=== PATIENT | male | born 1995 | race African-American/Black ===

== ENCOUNTER 2016-05-12 23:29 | Emergency (ER) | payer OTHER ==
[~2016-05-12] VITALS: Ht 170.2 cm; Wt 73.9 kg
[2016-05-12] MEDS ORDERED: MELATONIN1 M1 SL (23:49)
[2016-05-12 23:50] VITALS: BP 110/48
[2016-05-13] MEDS ORDERED: KEFLEX500 MG ORAL (00:20)
--- NOTE | 2016-05-13 00:20 | Emergency Room Report ---
History of Present Illness General Chief Complaint: Puncture Wound Source: Patient Present Illness HPI Is a 20-year-old male who is right-hand dominant. 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 This occurred to his right index finger. No other injury. Pain in that area. No active bleeding. Decreased range of motion. Patient History Past Medical History: none Past Surgical History: none Pertinent Family History: none Social History: Denies: smoking Immunizations: UTD Reviewed Nursing Documentation: PMH: Agreed, PSxH: Agreed Nursing Documentation-PM Past Medical History: No Stated History Review of Systems Eye: Denies: blurred vision, eye pain ENT: Denies: ear pain, nose congestion, throat swelling Respiratory: Denies: cough, shortness of breath Cardiovascular: Denies: chest pain, palpitations Gastrointestinal: Denies: abdominal pain, diarrhea, nausea, vomiting Musculoskeletal: Denies: back pain, joint pain Skin: Denies: rash Neurological: Denies: headache, numbness Endocrine: Denies: increased thirst, increased urine Hematologic/Lymphatic: Denies: easy bruising All Other Systems: negative except mentioned in HPI Physical Exam Vital Signs Date Time Temp Pulse Resp B/P Pulse Ox O2 Delivery O2 Flow Rate FiO2 05/12/16 23:44 98.2 65 18 105/40 96 Room Air vitals normal. Sp02 EP Interpretation: reviewed, normal General Appearance: well appearing, no apparent distress, alert Head: normocephalic, atraumatic Eyes: bilateral eye EOMI, bilateral eye PERRL ENT: hearing grossly normal, normal pharynx Neck: full range of motion, supple, no meningismus Respiratory: chest non-tender, lungs clear, normal breath sounds Cardiovascular #1: regular rate, rhythm, no murmur Gastrointestinal: normal bowel sounds, non tender, no mass, no organomegaly, no bruit, non-distended Musculoskeletal: back normal, gait/station normal, normal range of motion, other - rigth index finger: puncture wound to middle phalanx. Decreased ROM secondary to pain. NVI Neurologic: alert, oriented x3 Psychiatric: mood/affect normal Skin: warm/dry Medical Decision Making Diagnostic Impression: Primary Impression: Puncture wound ER Course Patient with a small puncture wound to the right index finger. No evidence of foreign body. No tendon laceration. Decreased range of motion secondary to pain but no deformity. Other X-Ray Diagnostic Results Other X-Ray Diagnostic Results : X-Ray Ordered: Xr finger Date: May 13, 2016 Time: 00:19 EP Interpretation: Yes Findings: no fractures, no dislocation, no soft tissue swelling Number of Views: 3 Last Vital Signs Date Time Temp Pulse Resp B/P Pulse Ox O2 Delivery O2 Flow Rate FiO2 05/12/16 23:50 98.1 74 18 110/48 100 Room Air Status: improved Disposition: HOME, SELF-CARE Condition: Stable Scripts Cephalexin* (KEFLEX*) 500 Mg Capsule 500 MG ORAL TID, #21 CAP 0 Refills Prov: AKUA MIXON M.D. 05/13/16 Patient Instructions: Puncture Wound Additional Instructions: With Worker's Comp. in 2 days for recheck. Return if symptom worsen. Keep wound clean. AKUA MIXON M.D. May 13, 2016 00:20
[2016-05-13 00:31] VITALS: BP 110/48
--- NOTE | 2016-05-13 11:59 | Diagnostic Imaging Report ---
Indication: TRAUMA Technique: 3 views of the right second digit Comparison: None Findings: No acute fractures. No dislocations. The joint spaces are preserved. No radiopaque foreign body Impression: Negative
== END 2016-05-13 00:31 | disposition home or self-care (01) ==
LOC: EMR 23:59
DX: S61.230A Puncture wound without foreign body of right index finger without damage to nail, initial encounter (principal); W25.XXXA Contact with sharp glass, initial encounter; Y93.G1 Activity, food preparation and clean up; Y92.511 Restaurant or cafe as the place of occurrence of the external cause; Y99.0 Civilian activity done for income or pay
CPT/HCPCS: 99283